=== PATIENT | male | born 1965 | race Caucasian/White ===

== ENCOUNTER 2017-08-10 19:51 | Emergency (ER) | payer OTHER ==
[2017-08-10 19:59] VITALS: BP 130/90; PULSE 98; TEMP 97.5; BMI 25.8
--- NOTE | 2017-08-10 20:04 | PDOC ---
History of Present Illness - General History Source: Patient Exam Limitations: No Limitations - History of Present Illness Initial Comments: 08/10/17 20:12 The patient is a 52 year old male, with no significant past medical history, who presents to the emergency department s/p injury with, pain and swelling to the left foot. As per patient, he was putting trash into the dumpster when he twisted his foot. He reports ambulating post injury. He denies any recent fevers, chills, headache or dizziness. He denies any recent nausea, vomit, diarrhea or constipation. He denies any recent chest pain or shortness of breath. He denies any recent dysuria, frequency, urgency or hematuria. PAST MEDICAL HISTORY: no significant history PAST SURGICAL HISTORY: no significant history FAMILY HISTORY: no pertinent history SOCIAL HISTORY: Pt lives with family and is employed. MEDICATIONS: reviewed ALLERGIES: As per nursing notes General: No fevers or chills, no weakness, no weight loss HEENT: No change in vision. No sore throat,. No ear pain CardioVascular: No chest pain or shortness of breath Respiratory:No cough, or wheezing. Gastrointestinal: no nausea, vomiting, diarrhea or constipation, No rectal bleeding Genitourinary: No dysuria, hematuria, or frequency +Musculoskeletal: Left ankle swelling. No joint. Neurologic: No headache, vertigo, dizziness or loss of consciousness Psychiatric: nor depression Skin: No rashes or easy bruising Endocrine: no increased thirst or abnormal weight change Allergic: no skin or latex allergy All other systems reviewed and normal GENERAL: The patient is awake, alert, and fully oriented, in no acute distress. HEAD: Normal with no signs of trauma. EYES: Pupils equal, round and reactive to light, extraocular movements intact, sclera anicteric, conjunctiva clear. +EXTREMITIES: Tenderness, swelling, and ecchymosis of the dorsal left foot. Tenderness to palpation of the 5th metatarsal . No obvious deformity. Normal range of motion. NEUROLOGICAL: Normal speech, normal gait. PSYCH: Normal mood, normal affect. SKIN: Warm, Dry, normal turgor, no rashes or lesions noted. <Vesta Luevano - Last Filed: 08/10/17 20:12> - General History Source: Patient Exam Limitations: No Limitations - History of Present Illness Initial Comments: A portion of this note was documented by scribe services under my direction. I have reviewed the details of the note, within reason, and agree with the documentation. The case summary and management plan written by me. X-ray fifth metatarsal nondisplaced fracture Procedure note: OCL posterior ankle/foot splint applied Neurovascular post splint application intact Assessment and plan: This is a 52-year-old male who twisted his foot while ambulating. Patient has a fracture of the fifth metatarsal but is nondisplaced. Patient was put in a posterior splint and given crutches and orthopedic follow- up. Patient discharged Assessment and plan: This is a 08/10/17 21:11 <Janessa Novoa I - Last Filed: 08/10/17 21:17> - General Chief Complaint: Injury Stated Complaint: INJURY TO LEFT FOOT Time Seen by Provider: 08/10/17 19:57 Past History <Vesta Luevano - Last Filed: 08/10/17 20:12> - Past Medical History COPD: No HTN: Yes - Suicide/Smoking/Psychosocial Hx Smoking History: Never smoked Have you smoked in the past 12 months: No Information on smoking cessation initiated: No Hx Alcohol Use: No Drug/Substance Use Hx: No Substance Use Type: None <Janessa Novoa I - Last Filed: 08/10/17 21:17> - Past Medical History Allergies/Adverse Reactions: Allergies Allergy/AdvReac Type Severity Reaction Status Date / Time No Known Allergies Allergy Verified 08/10/17 19:53 Home Medications: Ambulatory Orders Lisinopril 10 mg PO DAILY 08/10/17 *Physical Exam - Vital Signs Last Vital Signs Temp Pulse Resp BP Pulse Ox 97.5 F L 98 H 16 130/90 99 08/10/17 19:55 08/10/17 19:55 08/10/17 19:55 08/10/17 19:55 08/10/17 19:55 <Vesta Luevano - Last Filed: 08/10/17 20:12> - Vital Signs Last Vital Signs Temp Pulse Resp BP Pulse Ox 97.5 F L 98 H 16 130/90 99 08/10/17 19:55 08/10/17 19:55 08/10/17 19:55 08/10/17 19:55 08/10/17 19:55 <Janessa Novoa I - Last Filed: 08/10/17 21:17> *DC/Admit/Observation/Transfer - Attestations Scribe Attestion: 08/10/17 20:12 Documentation prepared by Vesta Luevano, acting as medical technician assistant for Janessa Novoa MD. <Vesta Luevano - Last Filed: 08/10/17 20:12> - Discharge Dispostion Decision to Admit order: No <Janessa Novoa I - Last Filed: 08/10/17 21:17> Diagnosis at time of Disposition: Fracture of fifth metatarsal bone of left foot Qualifiers: Encounter type: initial encounter Fracture type: closed Fracture alignment: nondisplaced Qualified Code(s): S92.355A - Nondisplaced fracture of fifth metatarsal bone, left foot, initial encounter for closed fracture - Discharge Dispostion Disposition: HOME Condition at time of disposition: Stable - Patient Instructions Printed Discharge Instructions: How to Use Crutches Additional Instructions: Use your crutches for walking. Take ibuprofen for pain or Aleve for pain as directed on the bottle. Follow-up with an orthopedist if you need an orthopedist call Dr. Hawk at [phone]. Return to the emergency department immediately with ANY new, persistent or worsening symptoms. Continue any medications as previously prescribed by your physician. You should follow up with your primary doctor as soon as possible regarding today's emergency department visit. . Please make sure your doctor reviews the results of your emergency evaluation. Thank you for coming to the Emergency Department today for your care. It was a pleasure to see you today. Please note that your evaluation is INCOMPLETE until you follow-up with your doctor.
== END 2017-08-10 21:46 | disposition home or self-care (01) ==
LOC: FER 19:51
DX: S92.355A Nondisplaced fracture of fifth metatarsal bone, left foot, initial encounter for closed fracture (principal); X58.XXXA Exposure to other specified factors, initial encounter; Y93.89 Activity, other specified; Y92.9 Unspecified place or not applicable; I10 Essential (primary) hypertension
CPT/HCPCS: 73630-TC-LT; 99281-25